=== PATIENT | female | born 1965 | race Native Hawaiian/Other Pacific Islander ===

== ENCOUNTER 2019-10-13 22:02 | Emergency (ER) | payer OTHER ==
[~2019-10-13] VITALS: Ht 162.6 cm; Wt 90.7 kg
[2019-10-13 22:50] LABS: PLATELET COUNT 322 K/uL (152-353)
[2019-10-13 22:53] LABS: POTASSIUM 4.4 mmol/L (3.6-5.2)
[2019-10-13 23:25] VITALS: BP 119/76; TEMP 97.9
[2019-10-14] MEDS ORDERED: ARIPIPRAZOLE10 MG PO (07:44)
[2019-10-14] MEDS ORDERED: MOBIC15 MG PO (07:44)
[2019-10-14] MEDS ORDERED: LISI5TAB10 PO (07:44)
[2019-10-14] MEDS ORDERED: OLANZAPINE20 M1 PO (07:45)
[2019-10-14] MEDS ORDERED: LAMOTRIGINE200 MG PO (07:45)
[2019-10-14] MEDS ORDERED: PHENOBARB97.2 MG PO (07:46)
[2019-10-14] MEDS ORDERED: SPRITAM500 MG PO (07:46)
[2019-10-14] MEDS ORDERED: SEROQUEL100 MG PO (07:47)
[2019-10-14] MEDS ORDERED: AMANTADINE100 M1 PO (07:47)
[2019-10-14] MEDS ORDERED: PHENOBARB PO (07:48)
== END 2019-10-13 23:25 | disposition still patient (30) ==
LOC: ED 22:02
PROVIDERS: Hospitalist
DX: F03.91 Unspecified dementia, unspecified severity, with behavioral disturbance (principal); F20.89 Other schizophrenia; F31.89 Other bipolar disorder; R56.9 Unspecified convulsions; Z04.6 Encounter for general psychiatric examination, requested by authority
CPT/HCPCS: 36415; 80053; 80184; 80185; 85027; 93005; 99283

== ENCOUNTER 2020-11-21 20:05 | Emergency (ER) | payer OTHER ==
[~2020-11-21] VITALS: Ht 162.6 cm; Wt 95.3 kg
[2020-11-21 20:05] VITALS: BP 165/100; TEMP 99.2
[~2020-11-21 20:05] MED LIST: ABILIFY MYCITE10 MG PO; ABILIFY MYCITE20 MG PO; AMANTADINE100 M1 PO; ARIPIPRAZOLE10 MG PO; CHOL100034 PO; CYAN10009 IM; FOLI1TAB26 PO; LAMOTRIGINE200 MG PO; LISI5TAB10 PO; MOBIC15 MG PO; OLANZAPINE20 M1 PO; PHENOBARB30 MG PO; PHENOBARB97.2 MG PO; RISP0.25 PO; SEROQUEL100 MG PO; SPRITAM750 MG PO
[2020-11-21 21:03] LABS: PLATELET COUNT 357 K/uL (152-353)
[2020-11-21 21:14] LABS: POTASSIUM 4.3 mmol/L (3.6-5.2)
[2020-11-21] MEDS ORDERED: PHENYTOIN EX100 MG PO (23:06)
[2020-11-21] MEDS ORDERED: FLUTICASON50 MCG/AC1 NAS (23:13)
== END 2020-11-21 22:05 | disposition other institution (70) ==
LOC: ED 20:18
PROVIDERS: Family Medicine
DX: F31.89 Other bipolar disorder (principal); Z11.52 Encounter for screening for COVID-19; Z04.6 Encounter for general psychiatric examination, requested by authority
CPT/HCPCS: 36415; 80053; 81000; 85008; 85027; 87635; 93005; 99283; 99285; U0003

== ENCOUNTER 2021-10-16 18:18 | Emergency (ER) | payer OTHER ==
[~2021-10-16] VITALS: Ht 162.6 cm; Wt 93.0 kg
[2021-10-16 18:18] VITALS: BP 159/79; TEMP 97.9
[~2021-10-16 18:18] MED LIST changes: +ABILIFY 10MG TAB PO; +BENZ1TAB43 PO; +DOCU100C10 PO; +ESCI10TA PO; +FERROUS SULF325 MG PO; +FLUTICASON50 MCG/AC1 NAS; +OLANZAPINE10 MG PO; +PHENOBARB PO; -PHENOBARB30 MG PO; +PHENYTOIN EX100 MG PO; +WELLBUTRIN SR 100MG PO
[2021-10-16 18:27] LABS: PLATELET COUNT 301 K/uL (152-353)
[2021-10-16 18:39] LABS: POTASSIUM 4.3 mmol/L (3.6-5.2)
[2021-10-17] MEDS ORDERED: BENZTROPINE0.5 MG PO (10:31)
[2021-10-17] MEDS ORDERED: ESCITALOPRAM20 MG PO (10:34)
[2021-10-17] MEDS ORDERED: MELATONIN10 M4 PO (10:35)
[2021-10-17] MEDS ORDERED: PHENYTOIN EX100 MG PO (10:43)
== END 2021-10-16 19:50 | disposition still patient (30) ==
LOC: ED 18:18
PROVIDERS: Emergency Medicine
DX: R46.89 Other symptoms and signs involving appearance and behavior (principal); F20.89 Other schizophrenia; Z11.52 Encounter for screening for COVID-19; Z04.6 Encounter for general psychiatric examination, requested by authority
CPT/HCPCS: 80053; 83880; 85027; 87635; 93005; 99283; U0003